=== PATIENT | male | born 1965 | race Caucasian/White ===

== ENCOUNTER 2016-03-07 06:31 | Emergency (ER) | payer OTHER ==
--- NOTE | 2016-03-07 06:57 | EDPHY ---
H & P Time Seen by Provider: 03/07/16 06:57 HPI/ROS: CHIEF COMPLAINT: A garrido of adrenaline" HISTORY OF PRESENT ILLNESS: This 50-year-old man has had recurrent symptoms since . He stayed up late on , had multiple alcoholic drinks. On March 04 he played golf and felt well, had a couple of cups coffee but at 5:00 p.m. felt a garrido of adrenaline while watching football and very anxious with waves of this feeling all night long. Each time it only lasted about 10 or 20 seconds. The next day on Saturday kept happening all day and then he slept reasonably well that night for about 12 hours. The next morning he went to Dr. Rudolph Puente's office who referred him to the emergency department but on the way to the ER he called a friend who is a physician who told him to check his blood pressure and wait it out at home. He felt great last night but then today he woke up with what he terms a panic attack feeling like he was gasping for air and some nausea chest tightness and weakness in his legs. Currently symptoms have mostly resolved. REVIEW OF SYSTEMS: Eye: no change in vision ENT: no sore throat Cardiac: HPI, no actual syncope Pulmonary: No cough or hemoptysis Abdomen: no vomiting, diarrhea, abdominal pain Musculoskeletal: no back pain or leg pain or leg swelling Skin: no rash Neuro: no headache Constitutional: no fever : no urinary symptoms A comprehensive 10 point review of systems is otherwise negative aside from elements mentioned in the history of present illness. PAST MEDICAL HISTORY: Orthopedic surgeries including right knee meniscus surgery 2 years ago, right thumb pinning at [id number]. Lipoma removal in the back. Denies hypertension diabetes or hypercholesterolemia. Social history: Nonsmoker, negative family history for premature coronary disease or venous thromboembolism, no cocaine or methamphetamine. No recent travel or immobilization. General Appearance: Alert and conversant, cooperative. Eyes: No scleral icterus. ENT, Mouth: Normal mucous membranes. Respiratory: Normal respiratory effort, breath sounds equal, lungs are clear to auscultation. Cardiovascular: Regular rate and rhythm. Gastrointestinal: Abdomen is soft and non tender. Neurological: Alert and oriented x3. Normally conversant. Face symmetric, normal movement and sensation in all extremities. Skin: Warm and dry, no rashes. Musculoskeletal: No peripheral edema and no joint swelling. No calf tenderness. Psychiatric: Mildly anxious otherwise normal. Emergency Department course/MDM: Patient is a normal EKG and negative troponin and tsh. I think that the most likely thing is still acute panic attack or anxiety. Patient has EKG without ischemic changes, no specific cardiac or pulmonary embolism risk factors, and negative troponin. Patient is encouraged to return if he should get new symptoms and will follow up with his primary care physician this week. Smoking Status: Never smoked Constitutional: Initial Vital Signs Temperature (C) 36.6 C 03/07/16 06:36 Heart Rate 61 03/07/16 06:36 Respiratory Rate 18 03/07/16 06:36 Blood Pressure 152/97 H 03/07/16 06:36 O2 Sat (%) 96 03/07/16 06:36 O2 Delivery Mode Room Air Allergies/Adverse Reactions: No Known Allergies Allergy (Unverified 03/07/16 06:35) Home Medications: Medication Instructions Recorded Doxycycline Calcium 03/07/16 Medical Decision Making - Diagnostics EKG Interpretation: 12-lead EKG interpreted by me; official reading is in trace master. My interpretation is sinus rhythm rate of 76 with incomplete right bundle branch block and no acute ischemic changes. - Data Points Laboratory Results: Laboratory Results 03/07/16 07:35 03/07/16 07:35 03/07/16 07:35 WBC 4.79 10^3/uL (3.80-9.50) RBC 5.04 10^6/uL (4.40-6.38) Hgb 16.0 g/dL (13.7-17.5) Hct 45.6 % (40.0-51.0) MCV 90.5 fL (81.5-99.8) MCH 31.7 pg (27.9-34.1) MCHC 35.1 g/dL (32.4-36.7) RDW 11.9 % (11.5-15.2) Plt Count 207 10^3/uL (150-400) MPV 9.8 fL (8.7-11.7) Neut % (Auto) 59.7 % (39.3-74.2) Lymph % (Auto) 27.6 % (15.0-45.0) [place] % (Auto) 10.2 % (4.5-13.0) Eos % (Auto) 1.7 % (0.6-7.6) Baso % (Auto) 0.4 % (0.3-1.7) Nucleat RBC Rel Count 0.0 % (0.0-0.2) Absolute Neuts (auto) 2.86 10^3/uL (1.70-6.50) Absolute Lymphs (auto) 1.32 10^3/uL (1.00-3.00) Absolute Monos (auto) 0.49 10^3/uL (0.30-0.80) Absolute Eos (auto) 0.08 10^3/uL (0.03-0.40) Absolute Basos (auto) 0.02 10^3/uL (0.02-0.10) Absolute Nucleated RBC 0.00 10^3/uL (0-0.01) Immature Gran % 0.4 % (0.0-1.1) Immature Gran # 0.02 10^3/uL (0.00-0.10) Sodium 143 mEq/L (134-144) Potassium 4.2 mEq/L (3.5-5.2) Chloride 106 mEq/L (97-110) Carbon Dioxide 25 mEq/l (22-31) Anion Gap 12 mEq/L (8-16) BUN 13 mg/dL (7-23) Creatinine 0.9 mg/dL (0.7-1.3) Estimated GFR > 60 Glucose 102 H mg/dL (70-100) Calcium 9.8 mg/dL (8.5-10.4) Troponin I < 0.012 ng/mL (0-0.034) TSH 1.160 uIU/mL (0.465-4.680) Departure - Departure Disposition: Home, Routine, Self-Care Clinical Impression: Anxiety Condition: Good Instructions: Panic Attack (ED) Additional Instructions: Please follow-up with your primary care doctor this week in the office. Referrals: Murtaza Puente MD [Primary Care Provider] - As per Instructions
--- NOTE | 2016-03-07 06:58 | CPEKG ---
Heart Rate: 76 RR Interval: 789 P-R Interval: 172 QRSD Interval: 108 QT Interval: 412 QTC Interval: 464 P Lavina: 49 QRS Lavina: 23 T Wave Lavina: 20 EKG Severity - ABNORMAL ECG - EKG Impression: SINUS RHYTHM EKG Impression: INCOMPLETE RIGHT BUNDLE BRANCH BLOCK Electronically Signed By: Bret Torres 07-Mar-2016 07:01:04
[2016-03-07 07:47] LABS: % IMMATURE GRANULYOCYTES 0.4 % (0.0-1.1); ABSOLUTE IMMATURE GRANULOCYTES 0.02 10^3/uL (0.00-0.10); ADD DIFF? NO; ADD MORPH? NO; ADD SCAN? NO; ATYPICAL LYMPHOCYTE FLAG 10 (0-99); FRAGMENT RBC FLAG 0 (0-99); HEMATOCRIT 45.6 % (40.0-51.0); LEFT SHIFT FLG 0 (0-99); LIPEMIA HEMOLYSIS FLAG 90 (0-99); MEAN CELL HEMOGLOBIN 31.7 pg (27.9-34.1); MEAN CELL HEMOGLOBIN CONCENTR. 35.1 g/dL (32.4-36.7); MEAN CELL VOLUME 90.5 fL (81.5-99.8); MEAN PLATELET VOLUME 9.8 fL (8.7-11.7); PLATELET CLUMPS FLAG 10 (0-99); PLATELET COUNT 207 10^3/uL (150-400); RED BLOOD CELL COUNT 5.04 10^6/uL (4.40-6.38); RED CELL DISTRIBUTION WIDTH 11.9 % (11.5-15.2)
[2016-03-07 08:05] LABS: ANION GAP 12 mEq/L (8-16); CALCIUM 9.8 mg/dL (8.5-10.4); CARBON DIOXIDE 25 mEq/l (22-31); CHLORIDE 106 mEq/L (97-110); CREATININE 0.9 mg/dL (0.7-1.3); GLOMERULAR FILTRATION RATE > 60; GLUCOSE 102 mg/dL (70-100); POTASSIUM 4.2 mEq/L (3.5-5.2); SODIUM 143 mEq/L (134-144)
[2016-03-07 08:15] LABS: TROPONIN I < 0.012 ng/mL (0-0.034)
[2016-03-07 08:50] VITALS: BP 133/96; PULSE 55; RESP 16; TEMP 98.1; O2SAT 94
== END 2016-03-07 08:49 | disposition home or self-care (01) ==
DX: F41.9 Anxiety disorder, unspecified (principal)

== ENCOUNTER → 2017-04-02 | Outpatient (CLI) | payer OTHER ==
[~2017-04-02] MED LIST: IOPAMIDOL (ISOVUE 370) 100 ML BTL IV ONE; IOPAMIDOL (ISOVUE-300) 100 ML BTL ONE
== END ==
LOC: CIMAGING 13:11
PROVIDERS: ATTEND Nurse Practitioner Adult Health
DX: I77.810 Thoracic aortic ectasia (principal)
CPT/HCPCS: 71275-PO; Q9967